=== PATIENT | male | born 1970 | race Caucasian/White ===

== ENCOUNTER → 2017-02-23 | Outpatient (CLI) | payer OTHER ==
[~2017-02-23] MED LIST: AMPH20CA7 PO
== END | disposition home or self-care (01) ==
LOC: STAR 09:19
PROVIDERS: ATTEND Specialist
DX: Z02.9 Encounter for administrative examinations, unspecified (principal)

== ENCOUNTER 2017-03-01 10:16 | Day surgery (SDC) | payer OTHER ==
[~2017-03-01] VITALS: Ht 182.9 cm; Wt 88.5 kg
[2017-03-01 10:48] VITALS: BP 155/73
[2017-03-01] MEDS ORDERED: LACTATED RINGERS 1,000 ML IV SCH (10:56)
[2017-03-01] MEDS ORDERED: LIDOCAINE 1%, 2ML ONE (10:58)
[2017-03-01] MEDS ORDERED: LIDOCAINE 1%, 2ML SQ PRN (11:00)
[2017-03-01] MEDS ORDERED: OFLOXACIN OPHTH 0.3%, 5ML ONE (11:59)
[2017-03-01] MEDS ORDERED: EPINEPHRINE TOPICAL SOLN 1 MG/ML, 30ML ONE (12:00)
[2017-03-01] MEDS ORDERED: MIDAZOLAM 1 MG/ML, 2ML ONE (12:00)
[2017-03-01] MEDS ORDERED: EPINEPHRINE 1 MG/ML, 1ML ONE ×2 (12:00→12:06)
[2017-03-01] MEDS ORDERED: LIDOCAINE/PF 1%-EPI 1:200K, 30ML ONE (12:00)
[2017-03-01] MEDS ORDERED: FENTANYL PF 250 MCG/5ML ONE (12:00)
[2017-03-01] MEDS ORDERED: BUPIVACAINE/PF-EPI 0.5% 1:200K ONE (12:00)
[2017-03-01] MEDS ORDERED: BACITRACIN 50,000 UNIT ONE (12:00)
[2017-03-01] MEDS ORDERED: BACITRACIN OINT 500U/GM, 15 GM ONE (12:26)
[2017-03-01] MEDS ORDERED: PROPOFOL 10 MG/ML, 20ML ONE (12:32)
[2017-03-01] MEDS ORDERED: ROCURONIUM 10 MG/ML ONE (12:32)
[2017-03-01] MEDS ORDERED: ONDANSETRON 2MG/ML, 2ML ONE (12:32)
[2017-03-01] MEDS ORDERED: CEFAZOLIN 1,000 MG ONE (12:32)
[2017-03-01] MEDS ORDERED: DEXAMETHASONE 4 MG/ML, 1ML ONE (12:32)
[2017-03-01] MEDS ORDERED: MINERAL OIL 10 ML VIAL MC ONE (14:11)
[2017-03-01] MEDS ORDERED: ONDANSETRON 2MG/ML, 2ML IVPush PRN (15:30)
[2017-03-01] MEDS ORDERED: ACETAMINOPHEN 325 MG TABLET PO PRN (15:30)
[2017-03-01] MEDS ORDERED: HYDROmorphone 1 MG/ML, 1ML IV PRN (15:30)
[2017-03-01] MEDS ORDERED: OXYcodone 5 MG/5 ML ORAL.SOL UDC PO PRN (15:30)
[2017-03-01] MEDS ORDERED: PROMETHAZINE 25 MG/ML, 1ML IV PRN (15:30)
[2017-03-01] MEDS ORDERED: MEPERIDINE/PF 25MG/0.5ML IVPush PRN (15:30)
[2017-03-01] MEDS ORDERED: FENTANYL PF 100 MCG/2ML ONE (15:40)
[2017-03-01] MEDS: FENTANYL PF 100 MCG/2ML IV PRN ×3 (15:40→16:39)
[2017-03-01] MEDS ORDERED: ACETAMINOPHEN 650 MG/20.3 ML UDC ONE (15:40)
[2017-03-01] MEDS ORDERED: OXYcodone 5 MG/5 ML ORAL.SOL UDC ONE (15:41)
== END 2017-03-01 17:55 | disposition home or self-care (01) ==
LOC: OUT 10:16
PROVIDERS: ATTEND Specialist
DX: H66.3X2 Other chronic suppurative otitis media, left ear (principal); H60.42 Cholesteatoma of left external ear
CPT/HCPCS: 15120; 21235; 69645; 87070; 87075; 87077; 87186; 87205; 88304; J0171; J0690; J1100; J2250; J2405; J2704; J3010; J3490; J7120; 87076